=== PATIENT | male | born 1940 | race Caucasian/White ===

== ENCOUNTER 2017-10-08 09:43 | Inpatient (IN) | payer MEDICARE, OTHER ==
[2017-10-08] MEDS ORDERED: SODIUM CHLORIDE 0.9% (FLUSH) 10 ML SYG IV PRN ×3 (09:52→16:54)
--- NOTE | 2017-10-08 09:58 | ED.PDOC ---
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 PAIN OR CHORTNESS OF BREATH HIS PAST MEDICAL HISTORY IS SIGNIFICANT FOR HYPERTENSION CVA 6 YEARS AGO CABAG 4 YEARS AGO AT [facility] - History of Present Illness Timing/Duration: 1/2 hour Severity: mild Improving Factors: nothing Worsening Factors: nothing Associated Symptoms: denies symptoms Allergies/Adverse Reactions: Allergies Dextromethorphan [From Mucinex DM] Allergy (Verified 10/08/17 09:51) Guaifenesin [From Mucinex DM] Allergy (Verified 10/08/17 09:51) Yellow Dye [From Mucinex DM] Allergy (Verified 10/08/17 09:51) Home Medications: Ambulatory Orders Allopurinol [Zyloprim] 100 mg PO DAILY 10/08/17 Atorvastatin Calcium [Lipitor] 40 mg PO BEDTIME 10/08/17 Clopidogrel Bisulfate [Plavix] 75 mg PO BEDTIME 10/08/17 Furosemide [Lasix] 40 mg PO TID 10/08/17 Lisinopril 2.5 mg PO DAILY 10/08/17 Magnesium 250 mg PO BID 10/08/17 Metformin HCl 850 mg PO BID 10/08/17 Metoprolol Tartrate 50 mg PO DAILY 10/08/17 Mirtazapine [Remeron] 15 mg PO BEDTIME 10/08/17 Potassium 99 mg PO BID 10/08/17 Review of Systems - Review of Systems Constitutional: States: no symptoms reported EENTM: States: no symptoms reported Respiratory: States: no symptoms reported Cardiology: States: no symptoms reported Gastrointestinal/Abdominal: States: no symptoms reported Genitourinary: States: no symptoms reported Musculoskeletal: States: no symptoms reported Skin: States: no symptoms reported Neurological: States: no symptoms reported Endocrine: States: no symptoms reported Hematologic/Lymphatic: States: no symptoms reported Family Medical History - Family History Father Family History: Unknown Living Status: Unknown Physical Exam - Physical Exam General Appearance: Alert, Comfortable Ears, Nose, Throat: hearing grossly normal, normal ENT inspection, normal pharynx Neck: non-tender, full range of motion, supple Respiratory: chest non-tender, lungs clear, normal breath sounds Cardiovascular/Chest: normal peripheral pulses, no edema, no gallop, no JVD, no murmur Peripheral Pulses: radial,right: 2+, radial,left: 2+, femoral,right: 2+, femoral ,left: 2+ Gastrointestinal/Abdominal: normal bowel sounds, non tender, soft 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, alert, normal mood/affect, oriented x 3 - HAS LEFT HEMIPLEGIA Progress - Progress Progress: 10/08/17 15:53 BRADYCARDIA PROBABLY SICK SINUS SYNDROME NEEDS A PACEMAKER HOWEVER FAMILY DECLINED ANY TREATMENT AT THIS TIME THEY DECIDED ON CARE AND COMFORT ONLY Departure - Departure Clinical Impression: Sick sinus syndrome due to SA node dysfunction Disposition: Admit Patient Home Medications: Ambulatory Orders Allopurinol [Zyloprim] 100 mg PO DAILY 10/08/17 Atorvastatin Calcium [Lipitor] 40 mg PO BEDTIME 10/08/17 Clopidogrel Bisulfate [Plavix] 75 mg PO BEDTIME 10/08/17 Furosemide [Lasix] 40 mg PO TID 10/08/17 Lisinopril 2.5 mg PO DAILY 10/08/17 Magnesium 250 mg PO BID 10/08/17 Metformin HCl 850 mg PO BID 10/08/17 Metoprolol Tartrate 50 mg PO DAILY 10/08/17 Mirtazapine [Remeron] 15 mg PO BEDTIME 10/08/17 Potassium 99 mg PO BID 10/08/17 Decision To Admit - Decistion To Admit Decision to Admit Reason: Medical Nature - BRADYARRHYTHMIA SICK SINUS SYNDROME SP CVA DM TYPE II SEIZURE LIKE ACTIVITY Decision to Admit Date: 10/08/17 Decision to Admit Time: 15:52
[2017-10-08 10:05] VITALS: TEMP 97.3
--- NOTE | 2017-10-08 10:56 | CT ---
EXAM DESCRIPTION: Head: Computed Tomography. CLINICAL HISTORY: R/O BLEED COMPARISON: Chest x-ray on the same visit. TECHNIQUE: Non-helical axial scans through the skull and brain, at 5.0 intervals, non-contrast. Axial 2.5 mm and coronal and sagittal 2.0 mm reconstructions. Total Exam DLP: 967.47 mGy-cm. This exam was performed according to our departmental dose-optimization program which includes automated exposure control, adjustment of the mA and/or kV according to patient size and/or use of iterative reconstruction technique; to reduce radiation dose to as low as reasonably achievable (ALARA). FINDINGS: No hemorrhage, no mass-effect, and no midline shift. Increased density in the falx and the tentorium cerebellum but extra-axial hemorrhage unlikely. Multiple levels of low-density in the bilateral periventricular white matter in the ascending white matter periventricular tracts. Also subcortical white matter more prominent in the bilateral occipital lobes. Focal area of left occipital parasagittal encephalomalacia. Bilateral basal ganglier calcifications are probably vascular. Vascular calcifications anterior and posterior; physiologic calcifications in the pineal gland and choroid plexus. Parenchymal calcifications in the right frontal lobe and right parietal lobe. This could be a result of previous inflammatory process. No effacement or displacement of the ventricles, CSF spaces, or subdural spaces. No extra axial fluid collection or hemorrhage. No gross abnormalities of the bony calvarium. Included paranasal sinuses and mastoid air cells are well - aerated. IMPRESSION: 1. No hemorrhage, no mass effect, no midline shift. No extra-axial hemorrhage. Multiple areas of bilateral white matter ischemia most likely related to cerebral microvascular disease. Probable previous infarction with encephalomalacia left occipital lobe parasagittal region just above the tentorium. Correlate clinical history for previous inflammatory process in the right cerebral hemisphere. 2. CT scans are insensitive for detecting small CVAs in the first 24 hours after onset. Evaluation of the brain stem is also limited. If symptoms persist, consider MRI scan of the brain with diffusion imaging. Electronically signed by: Vinnie Pratt MD 10/08/2017 10:54 AM [facility]
[2017-10-08] MEDS ORDERED: levETIRAcetam INJ 500 MG in SODIUM CHLORIDE 0.9% 100ML 100 ML IVPB ONE (11:23)
[2017-10-08] MEDS ORDERED: levETIRAcetam INJ 100 MG/ML VIAL IVPB ONE (11:31)
[2017-10-08] MEDS ORDERED: SODIUM CHLORIDE 0.9% 100ML 100 ML IVPB ONE (11:31)
--- NOTE | 2017-10-08 11:42 | RAD ---
EXAM DESCRIPTION: Chest,1 View CLINICAL HISTORY: bradycardia, seizure COMPARISON: CT scanning of the head on the same visit. Portable chest x-ray 05/29/2011. TECHNIQUE: AP portable taken at 1006 hours, upright position. FINDINGS: Lung volumes minimally decreased. Decreased compared to prior chest x-ray. Elevation of the right hemidiaphragm. Minimal atelectasis bilateral bases. No consolidation pleural effusion or pneumothorax. Heart size upper normal limits. Pulmonary vascularity not increased. Sternotomy has been performed since the prior study. IMPRESSION: Decreased inspiratory effort. Bibasilar atelectasis. Bacterial pneumonia unlikely. No pleural effusion. Electronically signed by: Vinnie Pratt MD 10/08/2017 11:41 AM SENIOR [facility]ATION [facility]
[2017-10-08] MEDS ORDERED: ATROPINE 1 MG/10 ML SYG IV ONE ×2 (13:52→14:18)
--- NOTE | 2017-10-08 15:44 | HP ---
SUPERVISING PHYSICIAN: Owen Magana M.D. CHIEF COMPLAINT: Altered mental status and neurological symptoms. HISTORY OF PRESENT ILLNESS: This is a 77 year-old male patient who was brought to the Emergency Room by EMS after his reported that he had had a seizure. He has a history of cerebrovascular accidents in the past with left sided hemiplegia. In the Emergency Room, he was found to be bradycardic in the 20s to 30s. He was given some Atropine. After his heart rate returned to normal, he was alert and oriented. His blood pressure remained stable. He did not remember the events of the seizure or the bradycardic episode, but otherwise he could answer questions appropriately. Head CT in the Emergency Room showed no hemorrhage or mass effect. No midline shift. No extra-axial hemorrhage. He has multiple areas of bilateral white matter ischemia most likely related to cerebral microvascular disease with probable previous infarct with encephalomalacia left occipital lobe parasagittal region just above the tentorium. Chest x-ray showed decreases inspiratory effort with bibasilar atelectasis, bilateral pneumonia is unlikely. His lab showed WBCs of 11.4 with hemoglobin of 12, hematocrit 35.6. Potassium .7, chloride 95, carbon dioxide 24 , BUN 34, creatinine 1.65, glucose 345. BNP was 424. Initially the patient's family had wanted the patient transferred but he had several bradycardic episodes that required Atropine. During his second episode his blood pressure went down to 82/29 but after the Atropine it improved to 120/81. The patient adamantly requested that there be no interventions done and his decided to make him a care and comfort only. I was called for admission to the hospital. Initially he was going to be placed in the hospital as a full admission on the Medical/Surgical floor but after discussion with the family, they decided to admit him to inpatient hospice. [facility]'s hospice was called and he will be admitted to inpatient hospice. PAST MEDICAL HISTORY: 1. Diabetes mellitus type 2. 2. Myocardial infarction. 3. Cerebrovascular accident with left sided weakness. 4. Coronary artery disease. 5. Gastroesophageal reflux disease. 6. Gout. 7. Hyperlipidemia. 8. Dementia. PAST SURGICAL HISTORY: 1. Coronary artery bypass graft. 2. Back surgery times 2. HOME MEDICATIONS: Per the EMR and awaiting verification. ALLERGIES: DEXTROMETHORPHAN, GUAIFENESIN AND YELLOW DYE. SOCIAL HISTORY: He lives in [place]. He is . He has 3 children. REVIEW OF SYSTEMS: Unable to obtain due to the patient's agitation and current mental status. PHYSICAL EXAMINATION: VITAL SIGNS: He is afebrile, heart rate ranges from 21 to 79, blood pressure 83 /49, respiratory rate 16, O2 sat is 96% on 2 liters nasal cannula. GENERAL: This is a 77 year-old obese male patient who is lying in his hospital bed. He is somewhat agitated. HEENT: Normocephalic and atraumatic. Pupils are equal and reactive. Oropharynx is clear. NECK: Supple without mass. RESPIRATORY: Essentially clear to auscultation bilaterally. CARDIOVASCULAR: Bradycardic rate, regular rhythm. GASTROINTESTINAL: Abdomen is soft, nondistended, non-tender. Bowel sounds are positive. EXTREMITIES: No cyanosis, clubbing or edema. NEUROLOGIC: He is agitated. He is awake. He is oriented to person and place only. LABORATORY: Labs and films are as per the History of Present Illness. ASSESSMENT: 1. Severe bradycardia most likely related to sick sinus syndrome. 2. Seizure disorder. PLAN: We will admit the patient to the hospital. He will be under [facility]'s hospice care. All orders will be per hospice protocol. Dr. Magana is the collaborating physician available for consultation. [facility][id number] [facility]
[2017-10-08 16:10] VITALS: BP 83/49; O2SAT 96
[2017-10-08] MEDS ORDERED: SODIUM CHLORIDE 0.9% 1000ML 1,000 ML IVS PRN ×2 (16:28→18:41)
[2017-10-08] MEDS: MORPHINE SULFATE INJ 10 MG/ML VIAL IV PRN ×2 (16:30→17:10)
[2017-10-08] MEDS ORDERED: IV SET AND CAP CHANGE INJ INJ SCH (16:30)
[2017-10-08] MEDS ORDERED: SODIUM CHLORIDE 0.9% 250ML 250 ML IVS PRN (16:54)
[2017-10-08] MEDS ORDERED: MORPHINE SULFATE INJ 10 MG/ML VIAL IV PRN (18:51)
[2017-10-09] MEDS ORDERED: MORPHINE SULFATE INJ 10 MG/ML VIAL ONE (00:25)
--- NOTE | 2017-10-09 11:01 | DS ---
SUPERVISING PHYSICIAN: Owen Magana M.D. DISCHARGE DIAGNOSIS: 1. . HISTORY OF PRESENT ILLNESS: This is a 77 year-old male patient who was brought to the Emergency Room by EMS after his reported that he had had a seizure. He has a history of cerebrovascular accidents in the past with left sided hemiplegia. In the Emergency Room, he was found to be bradycardic in the 20s to 30s. He was given some Atropine. After his heart rate returned to normal, he was alert and oriented. His blood pressure remained stable. He did not remember the events of the seizure or the bradycardic episode, but otherwise he could answer questions appropriately. Head CT in the Emergency Room showed no hemorrhage or mass effect. No midline shift. No extra-axial hemorrhage. He has multiple areas of bilateral white matter ischemia most likely related to cerebral microvascular disease with probable previous infarct with encephalomalacia left occipital lobe parasagittal region just above the tentorium. Chest x-ray showed decreases inspiratory effort with bibasilar atelectasis, bilateral pneumonia is unlikely. His lab showed WBCs of 11.4 with hemoglobin of 12, hematocrit 35.6. Potassium .7, chloride 95, carbon dioxide 24 , BUN 34, creatinine 1.65, glucose 345. BNP was 424. Initially the patient's family had wanted the patient transferred but he had several bradycardic episodes that required Atropine. During his second episode his blood pressure went down to 82/29 but after the Atropine it improved to 120/81. The patient adamantly requested that there be no interventions done and his decided to make him a care and comfort only. I was called for admission to the hospital. Initially he was going to be placed in the hospital as a full admission on the Medical/Surgical floor but after discussion with the family, they decided to admit him to inpatient hospice. [facility]'s hospice was called and he will be admitted to inpatient hospice. HOSPITAL COURSE: [facility] hospice orders were initiated. The patient on 10/09/17 at 5:40 AM. DISCHARGE MEDICATIONS: None. Dr. Magana is the collaborating physician available for consultation. [facility][id number] [facility]
== END 2017-10-09 09:30 | disposition expired | DRG 309 ==
LOC: ER 09:43 → UNDOADMIN 15:41 → MS 15:41
PROVIDERS: ADMIT Nurse Practitioner Acute Care; ATTEND Nurse Practitioner Acute Care
DX: I49.5 Sick sinus syndrome (principal); I69.354 Hemiplegia and hemiparesis following cerebral infarction affecting left non-dominant side; G40.909 Epilepsy, unspecified, not intractable, without status epilepticus; E11.9 Type 2 diabetes mellitus without complications; I25.2 Old myocardial infarction; I25.10 Atherosclerotic heart disease of native coronary artery without angina pectoris; K21.9 Gastro-esophageal reflux disease without esophagitis; M10.9 Gout, unspecified; E78.5 Hyperlipidemia, unspecified; F03.90 Unspecified dementia, unspecified severity, without behavioral disturbance, psychotic disturbance, mood disturbance, and anxiety; I10 Essential (primary) hypertension; Z95.1 Presence of aortocoronary bypass graft; Z88.8 Allergy status to other drugs, medicaments and biological substances; E66.9 Obesity, unspecified; Z68.32 Body mass index [BMI] 32.0-32.9, adult; Z66 Do not resuscitate; Z51.5 Encounter for palliative care